=== PATIENT | female | born 1950 | race Native Hawaiian/Other Pacific Islander ===

== ENCOUNTER 2016-11-12 08:33 | Outpatient (CLI) | payer OTHER ==
[~2016-11-12 08:33] MED LIST: ATEN50TA36 PO; LISI20TA11 PO; METF100038 OR
[2016-11-12 08:57] LABS: PLATELET COUNT 84 K/uL (152-353)
== END 2016-11-12 19:24 | disposition home or self-care (01) ==
LOC: LABW 08:33
PROVIDERS: Family Medicine
DX: E11.9 Type 2 diabetes mellitus without complications (principal)
CPT/HCPCS: 36415; 83036; 85027

== ENCOUNTER 2017-04-01 11:29 | Outpatient (CLI) | payer OTHER | END 2017-04-01 19:32 | disposition home or self-care (01) | LOC: RAD 11:29 | DX: J20.9 Acute bronchitis, unspecified (principal) ==

== ENCOUNTER 2017-04-26 10:23 | Outpatient (CLI) | payer OTHER | END 2017-04-26 19:23 | disposition home or self-care (01) | LOC: CT 10:23 | DX: K43.9 Ventral hernia without obstruction or gangrene (principal) | CPT/HCPCS: 36415; 82565; 84520; Q9963 ==

== ENCOUNTER 2017-05-08 13:01 | Outpatient (CLI) | payer OTHER ==
[2017-05-08 14:35] LABS: POTASSIUM 4.2 mmol/L (3.6-5.2); SODIUM 134 mmol/L (136-145)
== END 2017-05-08 19:37 | disposition home or self-care (01) ==
LOC: LABW 13:01
PROVIDERS: Internal Medicine Cardiovascular Disease
DX: I50.9 Heart failure, unspecified (principal); Z79.899 Other long term (current) drug therapy; Z51.81 Encounter for therapeutic drug level monitoring
CPT/HCPCS: 36415; 80048; 83880